=== PATIENT | female | born 1955 | race Caucasian/White ===

== ENCOUNTER 2016-10-14 18:00 | Emergency (ER) | payer BC ==
[~2016-10-14] VITALS: Ht 154.9 cm; Wt 64.1 kg
[~2016-10-14 18:00] MED LIST: LOSA25TA18 PO; MIRT15TA3 PO; MULTTAB58 PO; TRIATAB3 PO
[2016-10-14 18:06] VITALS: Ht 154.9 cm; Wt 64.1 kg
[2016-10-14 18:59] LABS: BASO % 0.6 %; BASO ABS # 0.02 K/uL (0-0.2); COMPLETE YES; EOS % 0.3 %; HEMATOCRIT 40.2 % (37-47); LYMPH % 15.3 %; LYMPH ABS # 0.55 K/uL (1.2-3.4); MEAN CELL VOLUME 89.1 fL (80-100); MEAN CORPUSCULAR HEMOGLOBIN 30.2 pg (25-34); MEAN CORPUSCULAR HGB CONC 33.8 g/dl (32-36); MEAN PLATELET VOLUME 9.1 fL (7.4-10.4); NEUT % 73.8 %; PLATELET COUNT 134 K/uL (130-400); RED BLOOD COUNT 4.51 M/uL (4.2-5.4)
[2016-10-14] MEDS ORDERED: ACETAMINOPHEN 325 MG TAB PO STA (19:10)
[2016-10-14 19:18] LABS: ALT/SGPT 72 U/L (12-78); AST/SGOT 113 U/L (15-37); BLOOD UREA NITROGEN 11 mg/dl (7-18); BUN/CREATININE RATIO 12.9 (10-20); CALCIUM 8.8 mg/dl (8.5-10.1); CARBON DIOXIDE 24 mmol/L (21-32); CHLORIDE 106 mmol/L (98-107); CREATININE 0.84 mg/dl (0.60-1.20); GLUCOSE 95 mg/dl (70-99); POTASSIUM 3.6 mmol/L (3.5-5.1); SODIUM 138 mmol/L (136-145)
[2016-10-14 19:20] LABS: ALKALINE PHOSPHATASE 94 U/L (45-117); PARTIAL THROMBOPLASTIN RATIO 1.1; PROTHROMBIN TIME (PATIENT) 10.2 SECONDS (9.0-12.0)
[2016-10-14] MEDS ORDERED: AMLO5TAB2 PO (19:55)
[2016-10-14] MEDS ORDERED: MULT-603 PO (19:55)
[2016-10-14 20:09] LABS: LYME DISEASE AB IGG NEG (NEG); LYME DISEASE AB IGM NEG (NEG)
[2016-10-14] MEDS ORDERED: SODIUM CHLORIDE 0.9% 1000ML 1,000 ML IV STA (20:25)
[2016-10-14] MEDS ORDERED: ONDANSETRON INJ 2 MG/ML 2 ML VIAL IV STA (20:58)
[2016-10-14] MEDS ORDERED: FENTANYL CITRATE INJ 50 MCG/1 ML 2 ML VIAL IV STA (20:58)
[2016-10-14] MEDS ORDERED: CEFTRIAXONE SOD INJ 1 GM ADDVIAL IV STA (20:59)
--- NOTE | 2016-10-14 21:19 | DIAGNOSTIC IMAGING REPORT ---
CHEST 2 VIEWS ROUTINE CLINICAL HISTORY: Fever. COMPARISON STUDY: Chest radiograph May 04, 2012. FINDINGS: Lung volumes are normal. Lungs are clear. There is no pneumothorax or pleural effusion. Cardiac size is normal. There is no evidence of pulmonary edema. There are cholecystectomy clips. IMPRESSION: No acute cardiopulmonary findings. Electronically signed by: Carlton Friedman M.D. 10/14/2016 9:18 PM Dictated Date/Time: 10/14/2016 9:17 PM
[2016-10-14 21:22] VITALS: TEMP 37.3
[2016-10-14 21:51] LABS: CSF APPEARANCE CLEAR; CSF COLOR COLORLESS; CSF XANTHOCHROMIC NO XANTHOCHROMIA
[2016-10-14 21:52] LABS: CSF CHEMISTRY TUBE # 2
[2016-10-14 21:54] LABS: CSF TOTAL PROTEIN 46.4 mg/dl (15.0-45.0)
[2016-10-14] MEDS ORDERED: DOXY100C2 PO (22:19)
[2016-10-14 22:26] VITALS: BP 129/79; PULSE 79; O2SAT 94
--- NOTE | 2016-10-15 00:26 | EMERGENCY ROOM VISIT NOTE ---
History Report prepared by Tino: Carmelita Goodrich Under the Supervision of: Dr. Jarrod Mcmahan M.D. First contact with patient: 18:16 Chief Complaint: ILLNESS Stated Complaint: FEVER, ACHES, RED LEFT BREAST, NAUSEA History of Present Illness The patient is a 61 year old female who presents to the Emergency Room with complaints of worsening illness symptoms beginning 5 days prior to arrival. The patient states that beginning she experienced fatigue and muscle aches. She notes the next day she had a fever of 102.7 and a headache. The patient states that each night the fever spikes. She notes that fevers and a headache are not common for her. The patient states that 1 month ago she had a tick bite on the top of her neck near the hair line. She was seen at the [facility] and treated with 1 dosage of 200 mg Doxycycline. The patient about 2 weeks ago noticed another tick on her left side but states it was removed before the skin was broken. A few days ago the patient noticed tenderness to her left nipple and warmth to the area. She checked her skin and noticed a red ring around her left breast. The patient denies a known tick bite to this location. 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 Currently the patient is experience nausea, chills, a cough and diarrhea. She denies abdominal pain but does note gas. The patient denies chest pain, shortness of breath or palpations. She is currently on medication for hypertension. 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 Review of Systems See HPI for pertinent positives & negatives. A total of 10 systems reviewed and were otherwise negative. Past Medical & Surgical Medical Problems: (1) Hypertension Surgical Problems: (1) Hx of cholecystectomy Family History FHx: gallbladder disease Heart disease Hypertension Lung disease Social History Smoking Status: Never Smoker Alcohol Use: occasionally Marital Status: Occupation Status: employed Current/Historical Medications Scheduled Amlodipine Besylate (Norvasc), 5 MG PO DAILY Doxycycline Hyclate (Vibramycin), 100 MG PO BID Multiple Vitamins W/ Minerals (Womens Multi Vitamin & Mi), 1 TAB PO DAILY Allergies Coded Allergies: Lisinopril (Verified Allergy, Mild, MUSCLE PAIN, 05/04/12) Physical Exam Vital Signs Date Time Temp Pulse Resp B/P Pulse Ox O2 Delivery O2 Flow Rate FiO2 10/14/16 22:26 79 16 129/79 94 Room Air 10/14/16 21:22 37.3 81 16 133/91 96 Room Air 10/14/16 19:37 83 16 128/91 95 Room Air 10/14/16 18:06 38.1 104 18 139/95 94 Room Air Physical Exam Constitutional: Vital signs reviewed. Eyes: Pupils are equal round reactive to light. Conjunctiva are noninjected. ENT: Pharynx is clear without erythema or exudate. Mucous membranes are moist. Pain with [id number] motion of her neck. Respiratory: Clear to auscultation bilaterally. Breath sounds are equal bilaterally. Cardiovascular: Regular rate and rhythm. No rubs or gallops. GI: Soft, nondistended and nontender. Bowel sounds are present. Musculoskeletal: No peripheral edema. No lower extremity tenderness. Integumentary: See below. Breast: Patient has what appears to be erythema migrans to left breast. No fluctuant or induration to left breast. No nipple discharge, no axillary lymphadenopathy. Neurological: The patient is awake and alert. Cranial nerves II-XII are intact. Motor is 5 out of 5 all extremities. Sensation is intact to light touch all extremities. Normal speech. No pronator drift. No Kernig's sign or Brudzinski's sign. Psychiatric: Normal affect. Medical Decision & Procedures ER Provider Diagnostic Interpretation: X-ray results as stated below per interpretation by me and the radiologist: CHEST 2 VIEWS ROUTINE CLINICAL HISTORY: Fever. COMPARISON STUDY: Chest radiograph May 04, 2012. FINDINGS: Lung volumes are normal. Lungs are clear. There is no pneumothorax or pleural effusion. Cardiac size is normal. There is no evidence of pulmonary edema. There are cholecystectomy clips. IMPRESSION: No acute cardiopulmonary findings. Electronically signed by: Carlton Friedman M.D. 10/14/2016 9:18 PM Dictated Date/Time: 10/14/2016 9:17 PM Laboratory Results 10/14/16 18:45 Red Blood Count 4.51, Mean Corpuscular Volume 89.1, Mean Corpuscular Hemoglobin 30.2, Mean Corpuscular Hemoglobin Concent 33.8, Mean Platelet Volume 9.1, Neutrophils (%) (Auto) 73.8, Lymphocytes (%) (Auto) 15.3, Monocytes (%) (Auto) 10.0, Eosinophils (%) (Auto) 0.3, Basophils (%) (Auto) 0.6, Neutrophils # (Auto ) 2.66, Lymphocytes # (Auto) 0.55, Monocytes # (Auto) 0.36, Eosinophils # (Auto ) 0.01, Basophils # (Auto) 0.02 10/14/16 18:45 Test 10/14/16 00:00 10/14/16 18:45 10/14/16 21:15 White Blood Count 3.60 K/uL (4.8-10.8) Red Blood Count 4.51 M/uL (4.2-5.4) Hemoglobin 13.6 g/dL (12.0-16.0) Hematocrit 40.2 % (37-47) Mean Corpuscular Volume 89.1 fL (80-100) Mean Corpuscular Hemoglobin 30.2 pg (25-34) Mean Corpuscular Hemoglobin Concent 33.8 g/dl (32-36) Platelet Count 134 K/uL (130-400) Mean Platelet Volume 9.1 fL (7.4-10.4) Neutrophils (%) (Auto) 73.8 % Lymphocytes (%) (Auto) 15.3 % Monocytes (%) (Auto) 10.0 % Eosinophils (%) (Auto) 0.3 % Basophils (%) (Auto) 0.6 % Neutrophils # (Auto) 2.66 K/uL (1.4-6.5) Lymphocytes # (Auto) 0.55 K/uL (1.2-3.4) Monocytes # (Auto) 0.36 K/uL (0.11-0.59) Eosinophils # (Auto) 0.01 K/uL (0-0.5) Basophils # (Auto) 0.02 K/uL (0-0.2) RDW Standard Deviation 45.1 fL (36.4-46.3) RDW Coefficient of Variation 13.6 % (11.5-14.5) Immature Granulocyte % (Auto) 0.0 % Immature Granulocyte # (Auto) 0.00 K/uL (0.00-0.02) Prothrombin Time 10.2 SECONDS (9.0-12.0) Prothromb Time International Ratio 1.0 (0.9-1.1) Activated Partial Thromboplast Time 29.3 SECONDS (21.0-31.0) Partial Thromboplastin Ratio 1.1 Anion Gap 8.0 mmol/L (3-11) Est Creatinine Clear Calc Drug Dose 59.5 ml/min Estimated GFR () 86.3 Estimated GFR (Non- 74.5 BUN/Creatinine Ratio 12.9 (10-20) Calcium Level 8.8 mg/dl (8.5-10.1) Total Bilirubin 0.3 mg/dl (0.2-1) Direct Bilirubin < 0.1 mg/dl (0-0.2) Aspartate Amino Transf (AST/SGOT) 113 U/L (15-37) Alanine Aminotransferase (ALT/SGPT) 72 U/L (12-78) Alkaline Phosphatase 94 U/L (45-117) Total Protein 7.0 gm/dl (6.4-8.2) Albumin 3.4 gm/dl (3.4-5.0) Lyme Disease IgG Antibody NEG (NEG) CSF Color COLORLESS CSF Appearance CLEAR CSF WBC 0 /uL (0-5) CSF RBC 0 /uL (0) CSF Xanthrochromic NO XANTHOCHROMIA CSF Cell Count Tube # 4 CSF Chemistry Tube # 2 CSF Glucose 50 mg/dl (40-70) CSF Total Protein 46.4 mg/dl (15.0-45.0) Laboratory results as reviewed by me. Medications Administered Medications (Trade) Dose Ordered Sig/Eric Route Start Time Stop Time Status Last Admin Dose Admin Acetaminophen 650 mg 650 mg NOW STAT PO 10/14/16 19:10 10/14/16 19:12 DC 10/14/16 19:36 650 MG Sodium Chloride (Nss 1000ml) 1,000 ml @ 999 mls/hr Q1H1M STAT IV 10/14/16 20:25 10/14/16 21:25 DC 10/14/16 20:34 999 MLS/HR Fentanyl Citrate (Fentanyl Inj) 50 mcg NOW STAT IV 10/14/16 20:58 10/14/16 20:59 DC 10/14/16 21:04 50 MCG Ondansetron HCl (Zofran Inj) 4 mg NOW STAT IV 10/14/16 20:58 10/14/16 20:59 DC 10/14/16 21:04 4 MG Ceftriaxone Sodium (Rocephin Inj) 1 gm NOW STAT IV 10/14/16 20:59 10/14/16 21:00 DC 10/14/16 21:20 1 GM Procedure Lumbar Puncture Indication: Rule out meningitis. Verbal consent was obtained after the risks and benefits were explained, including but not limited to headache, bleeding/clotting, scarring, infection, pain, and bone/joint/nerve damage. At this time, the risks of the procedure are less than the risks of NOT performing the procedure. A time out was taken and the correct patient and site identified. The patient was placed in the sitting position and the back was prepped with betadine and draped in the standard fashion. The L3 intervertebral space was identified, anesthetized locally with 1 % lidocaine without epinephrine, and the spinal needle was inserted through the skin with the bevel parallel to the dural fibers. The needle was carefully advanced into the lumbar cistern and 4 tubes of clear CSF was obtained. The stylet was replaced and the needle was removed. A bandaid was placed and the patient was placed in the supine position. The patient tolerated the procedure well and there were no complications. ECG Indication: other (lyme carditis) Rate (beats per minute): 85 Rhythm: normal sinus Findings: no ectopy, other (no heart block or bundle brach block) ED Course 1816: The patient was evaluated in room C10. A complete history and physical exam was performed. 1909: Tylenol Tab 650 mg PO. 1957: I discussed test results with the patient. 2024: Sodium Chloride 1,000 ml @ 999 mls/hr IV. 2026: I talked to the patient about her test results. I discussed her negative Lyme test that it could be a false negative. I recommended lumbar puncture for check of meningitis, lyme disease or cephalitis. I carefully reviewed the risks and benefits of lumbar puncture. 2055: The patient has agreed to lumbar puncture. She would like some medication to relax. 2057: Zofran Inj 4 mg IV, Fentanyl Inj 50 mcg IV, Rocephin Inj 1 gm IV. 2115: See procedure note for lumbar puncture. 2216: I talked with the patient about her results. 2219: Upon reevaluation, the patient appeared to have improvement of her symptoms. I discussed oswaldo's findings with her. She verbalized agreement of the treatment plan. She was discharged home. Medical Decision This is a 61-year-old female who presents with fever, body aches and headache and rash. Differential diagnosis includes Lyme disease, Lyme encephalitis, viral syndrome, cellulitis, mastitis, meningitis. I did perform a limited focused review of portions of the patient's old chart on the electronic medical record. The patient has had no recent pertinent visits to this hospital. Blood Pressure Screening: Patient was found to have an elevated blood pressure and was referred to their primary doctor for recheck and further treatment. Medication Reconciliation: I attest that I have personally reviewed the patient' s current medication list. I did evaluate the patient as noted above. The patient is presenting with symptoms consistent with Lyme disease. She has had fever and body aches and has noted several tick bites within the past month. She also has a rash today over her left breast which is consistent with erythema migrans. IV access was established. Blood cultures were ordered. I did order and personally review the patient's 12-lead EKG and chest x-ray as described above. I did order and review the patient's blood work as noted in the electronic medical record. Her white blood cell count is 3.6. Lyme testing is negative. LFTs are unremarkable. I did treat patient with Tylenol. She was also given normal saline IV. I did reassess patient. She states her headache is worsening. At this time her symptoms seem most consistent with Lyme disease despite the negative Lyme test. A Western blot was sent. Because of her neck pain and headache and fever I did recommend lumbar puncture to rule out meningitis or encephalitis. I did thoroughly discuss the risks and benefits of lumbar puncture which she agreed to. I did perform the lumbar puncture as described above. The CSF was clear and the results showed no signs of meningitis or encephalitis. I did send testing for Lyme CSF as well. I did discuss the results with the patient and her . I did recommend treatment with doxycycline for 3 weeks and close follow up with her doctor later this week. She was given Rocephin 1 g IV here and discharged with a prescription for 3 weeks of doxycycline. Impression Primary Impression: Lyme disease Scribe Attestation The scribe's documentation has been prepared under my direct and personally reviewed by me in its entirety. I confirm that the note above accurately reflects all work, treatment, procedures, and medical decision making performed by me. Departure Information Dispostion Home / Self-Care Prescriptions Doxycycline Hyclate (VIBRAMYCIN) 100 Mg Cap 100 MG PO BID for 21 Days, #42 CAP Prov: Jarrod Mcmahan M.D. 10/14/16 Referrals Rk Wilkinson M.D. (PCP) Forms HOME CARE DOCUMENTATION FORM, IMPORTANT VISIT INFORMATION, WORK / SCHOOL INSTRUCTIONS Patient Instructions ED Lyme Disease, [facility] Additional Instructions Although your Lyme test was negative, your symptoms seem most consistent with Lyme disease. You have been examined and treated today on an emergency basis only. This is not a substitute for, or an effort to provide, complete comprehensive medical care. It is impossible to recognize and treat all injuries or illnesses in a single emergency department visit. It is therefore important that you follow up closely with your physician this week. Call as soon as possible for an appointment. Should your symptoms not be improved on antibiotics you may require further workup. Return for worsening symptoms or if you develop numbness or weakness to your extremities, difficulty with her speech, worsening rash to your breast or any other concerning symptoms.
[2016-10-17 15:35] LABS: LYME DNA PCR CSF OR SYNOVIAL Not detected (Not Detected); LYME DNA SOURCE CSF
[2016-10-19 09:08] LABS: 18KDIGG BAND NONREACTIVE (NONREACTIVE); 23KDIGG BAND NONREACTIVE (NONREACTIVE); 23KDIGM BAND REACTIVE (NONREACTIVE); 28KDIGG BAND NONREACTIVE (NONREACTIVE); 30KDIGG BAND NONREACTIVE (NONREACTIVE); 39KDIGG BAND NONREACTIVE (NONREACTIVE); 39KDIGM BAND NONREACTIVE (NONREACTIVE); 41KDIGG BAND REACTIVE (NONREACTIVE); 41KDIGM BAND NONREACTIVE (NONREACTIVE); 45KDIGG BAND NONREACTIVE (NONREACTIVE); 58KDIGG BAND NONREACTIVE (NONREACTIVE); 66KDIGG BAND NONREACTIVE (NONREACTIVE); 93KDIGG BAND NONREACTIVE (NONREACTIVE)
[2016-10-21 09:47] LABS: LYME IGG CSF NO BANDS DETECTED; LYME IGM CSF NO BANDS DETECTED
== END 2016-10-14 22:27 | disposition home or self-care (01) ==
LOC: C.EDB 18:01 → C.EDC 22:27
DX: A69.20 Lyme disease, unspecified (principal); I10 Essential (primary) hypertension; Z83.79 Family history of other diseases of the digestive system; Z82.49 Family history of ischemic heart disease and other diseases of the circulatory system; Z83.6 Family history of other diseases of the respiratory system; Z79.899 Other long term (current) drug therapy

== ENCOUNTER → 2016-12-24 | Outpatient (CLI) | payer BC ==
[~2016-12-24] MED LIST changes: +AMLO5TAB2 PO; +DOXY100C2 PO; -LOSA25TA18 PO; -MIRT15TA3 PO; +MULT-603 PO; -MULTTAB58 PO; -TRIATAB3 PO
--- NOTE | 2016-12-25 07:45 | MAMMOGRAPHY REPORT ---
BILATERAL DIGITAL SCREENING MAMMOGRAM TOMOSYNTHESIS WITH CAD: 12/24/2016 CLINICAL HISTORY: Routine screening. Patient has no complaints. TECHNIQUE: Breast tomosynthesis in addition to standard 2D mammography was performed. Current study was also evaluated with a Computer Aided Detection (CAD) system. COMPARISON: Comparison is made to exams dated: 12/22/2015 mammogram, 12/20/2014 mammogram, 09/29/2013 zay mogram, 09/28/2012 mammogram, 09/26/2011 mammogram, and 09/24/2010 mammogram - [facility] er. BREAST COMPOSITION: The tissue of both breasts is heterogeneously dense, which may obscure small mas ses. FINDINGS: The parenchymal pattern is unchanged. No developing mass, architectural distortion or clus ter of suspicious microcalcifications is seen in either breast. IMPRESSION: ACR BI-RADS CATEGORY 2: BENIGN There is no mammographic evidence of malignancy. A 1 year screening mammogram is recommended. The pa tient will receive written notification of the results. Approximately 10% of breast cancers are not detected with mammography. A negative mammographic report should not delay biopsy if a clinically suggestive mass is present. Evelyn Galicia M.D. ay/:12/24/2016 17:08:43 Frog Catcher: Abbie Hernandez, [facility] letter sent: Normal 1/2 BI-RADS Code: ACR BI-RADS Category 2: Benign
== END | disposition home or self-care (01) ==
LOC: C.MAMM 10:03
PROVIDERS: ATTEND Family Medicine
DX: Z12.31 Encounter for screening mammogram for malignant neoplasm of breast (principal)

== ENCOUNTER → 2017-05-13 | Outpatient (CLI) | payer BC | END | disposition home or self-care (01) | LOC: C.LABSPEC 12:43 | PROVIDERS: ATTEND Obstetrics & Gynecology | DX: N75.1 Abscess of Bartholin's gland (principal) ==

== ENCOUNTER → 2017-12-26 | Outpatient (CLI) | payer OTHER ==
--- NOTE | 2017-12-26 15:26 | MAMMOGRAPHY REPORT ---
BILATERAL DIGITAL SCREENING MAMMOGRAM TOMOSYNTHESIS WITH CAD: 12/26/2017 CLINICAL HISTORY: Routine screening. Patient has no complaints. TECHNIQUE: The study was acquired using full field digital technology and interpreted from soft copy. Breast tomosynthesis in addition to standard 2D mammography was performed. Current study was also ev aluated with a Computer Aided Detection (CAD) system. COMPARISON: Comparison is made to exams dated: 12/24/2016 mammogram, 12/22/2015 mammogram, 12/20/2014 mamm ogram, 09/26/2011 mammogram, 09/29/2013 mammogram, and 09/24/2010 mammogram - [facility] BREAST COMPOSITION: The tissue of both breasts is heterogeneously dense, which may obscure small mass es. FINDINGS: No suspicious masses, calcifications, or areas of architectural distortion are noted in either breast . There has been no significant interval change compared to prior exams. A linear scar marker overli es the left upper outer breast. IMPRESSION: ACR BI-RADS CATEGORY 1: NEGATIVE There is no mammographic evidence of malignancy. A 1 year screening mammogram is recommended.( 019) The patient will receive written notification of the results. Some breast cancers are not detected with mammography. A negative mammographic report should not malini y biopsy if a clinically suggestive mass is present. Chelsea Samson M.D. ah/:12/26/2017 12:12:13 Table Games Dealer: RT Thom(Costa)(M), [facility] letter sent: Normal 1/2 BI-RADS Code: ACR BI-RADS Category 1: Negative
== END | disposition home or self-care (01) ==
LOC: C.MAMM 08:40
PROVIDERS: ATTEND Family Medicine
DX: Z12.31 Encounter for screening mammogram for malignant neoplasm of breast (principal)